=== PATIENT | male | born 1975 | race Caucasian/White ===

== ENCOUNTER → 2017-04-01 | Outpatient (CLI) | payer MEDICARE, OTHER ==
[~2017-04-01] MED LIST: BACTRIM DS 8001 TA1; BACTRIM DS 8001 TA1 PO; CLINDAMYCIN HC300 MG PO; CLINDAMYCIN300 MG PO; GEMFIBROZIL600 MG PO; KEFLEX500 MG PO; LANTUS100 U/ML SC; LIPITOR80 MG PO; LISINOPRIL20 MG PO; METFORMIN1000 MG PO; MOTRIN800 MG PO; SEPTRA DS1 TAB PO; VICODIN 5/500 505 MG PO; VICTOZA6 MG/ML SC; ZESTRIL,PRINIVI20 MG PO
== END | disposition home or self-care (01) ==
LOC: CT 09:00
DX: K76.0 Fatty (change of) liver, not elsewhere classified (principal); K59.09 Other constipation; R19.00 Intra-abdominal and pelvic swelling, mass and lump, unspecified site